=== PATIENT | male | born 2000 | race African-American/Black ===

== ENCOUNTER 2020-07-18 13:12 | Emergency (ER) | payer MEDICAID ==
--- NOTE | 2020-07-18 13:21 | EDM.PDOC ---
ED HPI GENERAL MEDICAL PROBLEM - General Stated Complaint: TROUBLE BREATHING,ABDOMINAL PAIN Time Seen by Provider: 07/18/20 13:20 Source of Information: Reports: Patient History Limitations: Reports: No Limitations - History of Present Illness INITIAL COMMENTS - FREE TEXT/NARRATIVE: HISTORY AND PHYSICAL: History of present illness: Patient is a 20-year-old male who presents to the emergency room with complaints of generalized upper abdominal pain, nausea, vomiting and constipation. He states he has not had a bowel movement in 3 to 4 days. Has not used any [id number] remedies to help facilitate a bowel movement. Yesterday he developed some midsternal/generalized chest pain which resolved with ibuprofen. Patient denies any fever, chills, headache, change in vision, syncope or near syncope. Denies any back pain, shortness of breath, cough or hemoptysis. Denies any diarrhea, testicular pain/redness/swelling or dysuria. Has not noted any blood in urine or stool. Patient has been eating and drinking appropriately. Review of systems: As per history of present illness and below otherwise all systems reviewed and negative. Past medical history: As per history of present illness and as reviewed below otherwise noncontributory. Surgical history: As per history of present illness and as reviewed below otherwise noncontributory. Social history: See social history for further information Family history: As per history of present illness and as reviewed below otherwise noncontributory. Physical exam: General: Well developed and well nourished 20 year old male. Alert and or ientated x 3. Nontoxic in appearance and in no acute distress. Vital signs are stable and have been reviewed by me. Nursing notes were reviewed. HEENT: Atraumatic, normocephalic, pupils equal and reactive bilaterally, negative for conjunctival pallor or scleral icterus, mucous membranes moist, TMs normal bilaterally, throat clear, neck supple, nontender, trachea midline. No drooling or trismus noted. No meningeal signs. No hot potato voice noted. Lungs: Clear to auscultation, breath sounds equal bilaterally, chest nontender. Normal work of breathing, no accessory muscles used. Heart: S1S2, regular rate and rhythm without overt murmur Abdomen: Soft, nondistended, diffuse generalized tenderness in all 4 quadrants. No rebound tenderness. Negative Worley sign. negative for masses or hepato splenomegaly. Negative for costovertebral tenderness. Skin: Intact, warm, dry. No lesions or rashes noted. Hematologic: No petechiae or purpra. Mucosa appropriate color and normal nail bed color and refill. Extremities: Atraumatic, moves all extremities per self without difficulty or deficits, negative for cords or calf pain. Neurovascular unremarkable. Neuro: Awake, alert, oriented. Cranial nerves II through XII unremarkable. Cerebellum unremarkable. Motor and sensory unremarkable throughout. Exam nonfocal. Psychiatric: Mood and affect are appropriate. Normal thought process. Answering questions appropriately. Notes: EKG shows a sinus rhythm with a rate of 74. No concern for STEMI. Patient does have a leukocytosis of 14.7, CT of the abdomen and pelvis was ordered. No findings of appendicitis. No evidence of diverticulitis or bowel obstruction. Mild duodenal wall prominence could be related to underdistention, without periduodenal changes. Correlate clinically to exclude mild duodenitis. Fullness of the right renal upper pole collecting system without hydroureter. Borderline bladder wall thickness could be related to underdistention. I have talked with the patient about today's findings, in addition to providing specific details for plan of care. He is tolerating PO without n/v. States he does feel improved. Will place patient on Cipro BID x 5 days. Reassessment at the time of disposition demonstrates that the patient is in no acute distress. The patient is stable for discharge, counseling was provided and we discussed in great detail signs and symptoms that would prompt them to return to the Emergency Department. Medication, follow up and supportive care measures were reviewed and discussed. Voices understanding and is agreeable to plan of care. Denies any further questions or concerns at this time. Diagnostics: CBC, CMP, UA, lipase, EKG, chest x-ray Therapeutics: IV fluid, Zofran Prescription: Cipro Impression: Mild duodenitis Plan: 1. Today your lab work and CT scan shows mild inflammation of the duodenum (small intestine). Please increase your fluids. Lipscomb diet and advance as tolerated. If you continue to feel like you are constipated, may add Miralax to your regiment until satisfactory bowel movement. 2. Take the antibiotic as directed. Tylenol and Ibuprofen as needed for pain. 3. We encourage you to follow up with your primary care provider and/or recommended specialist in the next few days for re-evaluation and further care/management. If your symptoms should worsen, new symptoms develop or any of the signs and symptoms we discussed should arise please return to the emergency room or call 911 (if needed). Definitive disposition and diagnosis as appropriate pending reevaluation and review of above. Abdominal Pain Pain Score (Numeric/FACES): 8 - Related Data Allergies Allergy/AdvReac Type Severity Reaction Status Date / Time No Known Allergies Allergy Verified 07/18/20 13:24 Home Meds: Home Meds Adhd Medication 07/18/20 [History] Ciprofloxacin HCl [Cipro] 500 mg PO BID 5 Days #10 tablet 07/18/20 [Rx] ED ROS GENERAL - Review of Systems Review Of Systems: Comprehensive ROS is negative, except as noted in HPI. ED EXAM, GI/ABD - Physical Exam Exam: See Below (See dictation) Course - Vital Signs Last Recorded V/S: Last Vital Signs Temp 97.0 F 07/18/20 13:24 Pulse 71 07/18/20 15:38 Resp 16 07/18/20 15:38 BP 101/47 L 07/18/20 15:38 Pulse Ox 97 07/18/20 15:38 - Orders/Labs/Meds Orders: Active Orders 24 hr Category Date Time Status EKG Documentation Completion [RC] STAT Care 07/18/20 13:30 Active Labs: Laboratory Tests 07/18/20 07/18/20 07/18/20 Range/Units 13:38 13:38 14:29 WBC 14.71 H (4.0-11.0) K/uL RBC 4.56 (4.50-5.90) M/uL Hgb 13.8 (13.0-17.0) g/dL Hct 40.3 (38.0-50.0) % MCV 88.4 (80.0-98.0) fL MCH 30.3 (27.0-32.0) pg MCHC 34.2 (31.0-37.0) g/dL RDW Std Deviation 38.9 (28.0-62.0) fl RDW Coeff of Prasanth 12 (11.0-15.0) % Plt Count 194 (150-400) K/uL MPV 10.40 (7.40-12.00) fL Neut % (Auto) 79.1 (48.0-80.0) % Lymph % (Auto) 12.8 L (16.0-40.0) % [place] % (Auto) 7.7 (0.0-15.0) % Eos % (Auto) 0.3 (0.0-7.0) % Baso % (Auto) 0.1 (0.0-1.5) % Neut # (Auto) 11.6 H (1.4-5.7) K/uL Lymph # (Auto) 1.9 (0.6-2.4) K/uL [place] # (Auto) 1.1 H (0.0-0.8) K/uL Eos # (Auto) 0.1 (0.0-0.7) K/uL Baso # (Auto) 0.0 (0.0-0.1) K/uL Nucleated RBC % 0.0 /100WBC Nucleated RBCs # 0 K/uL Sodium 137 (136-148) mmol/L Potassium 4.0 (3.5-5.1) mmol/L Chloride 98 (98-107) mmol/L Carbon Dioxide 22.9 (21.0-32.0) mmol/L BUN 27 H (7.0-18.0) mg/dL Creatinine 1.5 H (0.8-1.3) mg/dL Est Cr Clr Drug Dosing 95.76 mL/min Estimated GFR (MDRD) > 60.0 ml/min Glucose 71 L (74-106) mg/dL Calcium 9.8 (8.5-10.1) mg/dL Total Bilirubin 1.3 H (0.2-1.0) mg/dL AST 185 H (15-37) IU/L ALT 26 (14-63) IU/L Alkaline Phosphatase 49 (46-116) U/L Total Protein 8.6 H (6.4-8.2) g/dL Albumin 4.9 (3.4-5.0) g/dL Globulin 3.7 (2.6-4.0) g/dL Albumin/Globulin Ratio 1.3 (0.9-1.6) Lipase 55 L (73-393) U/L Urine Color YELLOW Urine Appearance HAZY Urine pH 6.0 (5.0-8.0) Ur Specific [place] >= 1.030 (1.001-1.035) Urine Protein TRACE H (NEGATIVE) mg/dL Urine Glucose (UA) NEGATIVE (NEGATIVE) mg/dL Urine Ketones >=80 (NEGATIVE) mg/dL Urine Occult Blood TRACE-INTACT H (NEGATIVE) Urine Nitrite NEGATIVE (NEGATIVE) Urine Bilirubin SMALL H (NEGATIVE) Urine Ictotest NEGATIVE Urine Urobilinogen 0.2 (<2.0) EU/dL Ur Leukocyte Esterase NEGATIVE (NEGATIVE) Urine RBC 0-1 (0-2/HPF) Urine WBC 0-1 (0-5/HPF) Ur Epithelial Cells RARE (NONE-FEW) Amorphous Sediment FEW (NEGATIVE) Urine Bacteria FEW (NEGATIVE) Fine Granular Casts OCCASIONAL (NEGATIVE) Meds: Medications Discontinued Medications Generic Name Dose Route Start Last Admin Trade Name Freq PRN Reason Stop Dose Admin Sodium Chloride 1,000 mls @ 999 mls/hr 07/18/20 13:29 07/18/20 13:38 Normal Saline IV 07/18/20 14:29 999 mls/hr STAT ONE Administration Iopamidol 100 ml 07/18/20 15:23 07/18/20 15:24 Isovue Multipack-370 (76%) IVPUSH 07/18/20 15:24 100 ml ONETIME STA Administration Ondansetron HCl 4 mg 07/18/20 13:29 07/18/20 13:38 Zofran IVPUSH 07/18/20 13:30 4 mg ONETIME ONE Administration Departure - Departure Time of Disposition: 15:55 Disposition: Home, Self-Care 01 Clinical Impression: Duodenitis - Discharge Information Prescriptions: Ciprofloxacin HCl [Cipro] 500 mg PO BID 5 Days #10 tablet Instructions: Duodenitis Referrals: PCP,None [Primary Care Provider] - Forms: ED Department Discharge Additional Instructions: The following information is given to patients seen in the emergency department who are being discharged to home. This information is to outline your options for follow-up care. We provide all patients seen in our emergency department with a follow-up referral. The need for follow-up, as well as the timing and circumstances, are variable depending upon the specifics of your emergency department visit. If you don't have a primary care physician on staff, we will provide you with a referral. We always advise you to contact your personal physician following an emergency department visit to inform them of the circumstance of the visit and for follow-up with them and/or the need for any referrals to a consulting specialist. The emergency department will also refer you to a specialist when appropriate. This referral assures that you have the opportunity for follow-up care with a specialist. All of these measure are taken in an effort to provide you with optimal care, which includes your follow-up. Under all circumstances we always encourage you to contact your private physician who remains a resource for coordinating your care. When calling for follow-up care, please make the office aware that this follow-up is from your recent emergency room visit. If for any reason you are refused follow-up, please contact the [facility] Emergency Department at and asked to speak to the emergency department charge nurse. [facility] [address] [place] [id number] [place] [address] Thank you for choosing the [facility] emergency department in [place] for your medical needs today. It was a pleasure caring for you. Today you were seen in the emergency department for abdominal pain. 1. Today your lab work and CT scan shows mild inflammation of the duodenum (small intestine). Please increase your fluids. Lipscomb diet and advance as tolerated. If you continue to feel like you are constipated, may add Miralax to your regiment until satisfactory bowel movement. 2. Take the antibiotic as directed. Tylenol and Ibuprofen as needed for pain. 3. We encourage you to follow up with your primary care provider and/or recommended specialist in the next few days for re-evaluation and further care/management. If your symptoms should worsen, new symptoms develop or any of the signs and symptoms we discussed should arise please return to the emergency room or call 911 (if needed). Sepsis Event Note (ED) - Focused Exam Vital Signs: Vital Signs Temp Pulse Resp BP Pulse Ox 07/18/20 15:38 71 16 101/47 L 97 07/18/20 14:46 104/63 07/18/20 13:24 97.0 F 109 H 17 118/64 98 - My Orders Last 24 Hours: My Active Orders 07/18/20 13:30 EKG Documentation Completion [RC] STAT - Assessment/Plan Last 24 Hours: My Active Orders 07/18/20 13:30 EKG Documentation Completion [RC] STAT
[2020-07-18] MEDS ORDERED: Sodium Chloride 0.9% 1,000 ML IV ONE (13:29)
[2020-07-18] MEDS ORDERED: Ondansetron 4 MG/2 ML SDV IVPUSH ONE (13:29)
--- NOTE | 2020-07-18 13:49 | PCM.SN.2 ---
- Free Text/Narrative Note: EKG Time 137pm Rate 74 NSR no JULITA
[2020-07-18 14:26] LABS: BLOOD UREA NITROGEN,BUN 27 mg/dL (7.0-18.0); CARBON DIOXIDE,CO2 22.9 mmol/L (21.0-32.0); CHLORIDE,CL 98 mmol/L (98-107); GLUCOSE RANDOM 71 mg/dL (74-106); LIPASE 55 U/L (73-393); SODIUM,NA 137 mmol/L (136-148)
--- NOTE | 2020-07-18 14:26 | CR ---
HISTORY: Chest pain. TECHNIQUE: Portable frontal view the chest. COMPARISON: None. FINDINGS: No airspace consolidation. No pleural effusion or pneumothorax. Pulmonary vasculature and cardiomediastinal silhouette are within normal limits. IMPRESSION: No cardiopulmonary abnormality. Dictated by Tejas Cortez MD @ Jul 18 2020 2:23PM Signed by Dr. Tejas Cortez @ Jul 18 2020 2:24PM
[2020-07-18] MEDS ORDERED: Iopamidol 755 MG/ML 500 ML Multipack Bottle IVPUSH STA (15:23)
--- NOTE | 2020-07-18 15:51 | CT ---
INDICATION: Abdominal pain TECHNIQUE: CT abdomen and pelvis acquired with IV contrast. 100 mL of Isovue 370 administered. COMPARISON: None available FINDINGS: Lower chest: Unremarkable. Liver: Unremarkable. Spleen: Unremarkable. Pancreas: Unremarkable. Gallbladder and bile ducts: Unremarkable. Adrenal glands: Unremarkable. 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 GI tract: Mild duodenal wall prominence could be related to underdistention, without periduodenal changes. No mechanical bowel obstruction. Portions of a normal caliber appendix seen without pericecal inflammatory changes. No significant pericolonic changes. Vascular structures: Unremarkable. Lymph nodes: Unremarkable. Miscellaneous: No free air or significant free fluid. Pelvic Organs: Borderline bladder wall thickness could be related to incomplete distention. A small enhancing focus in the midline superior prostate on image 140 which could be physiologic. Bones: Unremarkable for age. IMPRESSION: No findings of appendicitis. No evidence of diverticulitis or bowel obstruction. Mild duodenal wall prominence could be related to underdistention, without periduodenal changes. Correlate clinically to exclude mild duodenitis. Fullness of the right renal upper pole collecting system without hydroureter. Borderline bladder wall thickness could be related to underdistention. Correlate with urinalysis. Please note that all CT scans at this facility use dose modulation, iterative reconstruction, and/or weight-based dosing when appropriate to reduce radiation dose to as low as reasonably achievable. Dictated by Barron Fishman MD @ Jul 18 2020 3:36PM Signed by Dr. Barron Fishman @ Jul 18 2020 3:49PM
== END 2020-07-18 16:09 | disposition home or self-care (01) ==
LOC: MW.ED 13:12
DX: K29.80 Duodenitis without bleeding (principal)
CPT/HCPCS: 71045; 74177; 80053; 81001; 83690; 85025; 93005; 96374; 99284; J2405; J7030; Q9967; 93010; 99283

== ENCOUNTER 2020-08-14 15:41 | Emergency (ER) | payer MEDICAID ==
[2020-08-14] MEDS ORDERED: Ketorolac 60 MG/2 ML SDV IM ONE (16:50)
--- NOTE | 2020-08-14 16:56 | EDM.PDOC ---
ED HPI GENERAL MEDICAL PROBLEM - General Chief Complaint: Lower Extremity Injury/Pain Stated Complaint: RIGHT KNEE PAIN Time Seen by Provider: 08/14/20 16:30 Source of Information: Reports: Patient History Limitations: Reports: No Limitations - History of Present Illness INITIAL COMMENTS - FREE TEXT/NARRATIVE: Reporting right knee pain the patient states that he was playing basketball last night and after the game he noticed some pain in his right knee. It has persisted since that time. He recalls falling down 3 times during the game and striking the knee. He also fell down 3 times in the game on the previous evening, indirectly striking the knee. He has not really noticed any swelling. He has been ambulating. The pain increases by flexing and with ambulating. He is otherwise healthy without chronic medical problems and takes no medications. Right Knee Pain Score (Numeric/FACES): 9 - Related Data Allergies Allergy/AdvReac Type Severity Reaction Status Date / Time No Known Allergies Allergy Verified 08/14/20 16:03 Home Meds: Home Meds Amphetamine/Dextroamphetamine [Adderall] 20 mg PO DAILY 08/14/20 [History] Past Medical History - Past Health History Medical/Surgical History: Denies Medical/Surgical History Psychiatric History: Reports: ADHD - Infectious Disease History Infectious Disease History: Reports: None Social & Family History - Family History Family Medical History: No Pertinent Family History - Tobacco Use Tobacco Use Status *Q: Never Tobacco User - Caffeine Use Caffeine Use: Reports: Coffee, Energy Drinks - Recreational Drug Use Recreational Drug Use: Yes Recreational Drug Type: Reports: Marijuana/Hashish Recreational Drug Use Frequency: Monthly Review of Systems - Review of Systems Review Of Systems: Comprehensive ROS is negative, except as noted in HPI. ED EXAM, GENERAL - Physical Exam Exam: See Below Exam Limited By: No Limitations General Appearance: Alert, No Apparent Distress Ears: Normal External Exam Nose: Normal Inspection Throat/Mouth: Normal Inspection Head: Atraumatic, Normocephalic Neck: Normal Inspection Respiratory/Chest: No Respiratory Distress Cardiovascular: Normal Peripheral Pulses GI/Abdominal: Normal Bowel Sounds Extremities: Other (Mild swelling inferior to the patella, no ecchymosis, erythema, deformity, crepitus. Anterior posterior drawer and varus valgus stress test negative. Mild medial pain to Apley's grind test) Neurological: Alert, Oriented Psychiatric: Normal Affect, Normal Mood Skin Exam: Warm, Dry, Intact, Normal Color, No Rash Lymphatic: No Adenopathy Course - Vital Signs Last Recorded V/S: Last Vital Signs Temp 36.9 C 08/14/20 16:04 Pulse 60 08/14/20 16:04 Resp 18 08/14/20 16:04 BP 107/72 08/14/20 16:04 Pulse Ox 97 08/14/20 16:04 - Orders/Labs/Meds Meds: Medications Discontinued Medications Generic Name Dose Route Start Last Admin Trade Name Leif PRN Reason Stop Dose Admin Ketorolac Tromethamine 60 mg 08/14/20 16:50 08/14/20 16:56 Toradol IM 08/14/20 16:51 60 mg ONETIME ONE Administration Departure - Departure Time of Disposition: 17:55 Disposition: Home, Self-Care 01 Condition: Good Clinical Impression: Knee pain Qualifiers: Chronicity: acute Laterality: right Qualified Code(s): M25.561 - Pain in right knee - Discharge Information Referrals: PCP,Not In Area [Primary Care Provider] - Forms: ED Department Discharge Additional Instructions: The following information is given to patients seen in the emergency department who are being discharged to home. This information is to outline your options for follow-up care. We provide all patients seen in our emergency department with a follow-up referral. The need for follow-up, as well as the timing and circumstances, are variable depending upon the specifics of your emergency department visit. If you don't have a primary care physician on staff, we will provide you with a referral. We always advise you to contact your personal physician following an emergency department visit to inform them of the circumstance of the visit and for follow-up with them and/or the need for any referrals to a consulting specialist. The emergency department will also refer you to a specialist when appropriate. This referral assures that you have the opportunity for follow-up care with a specialist. All of these measure are taken in an effort to provide you with opt imal care, which includes your follow-up. Under all circumstances we always encourage you to contact your private physician who remains a resource for coordinating your care. When calling for follow-up care, please make the office aware that this follow-up is from your recent emergency room visit. If for any reason you are refused follow-up, please contact the [facility] Emergency Department at and asked to speak to the emergency department charge nurse. 1. Follow-up with vocational trainer 2. Follow-up with orthopedics: [facility] [address], [address] [place] [address] 3. Knee sleeve 4. Cool pack to prevent further swelling 20 minutes every 3-4 hours as needed Sepsis Event Note (ED) - Evaluation Sepsis Screening Result: No Definite Risk - Focused Exam Vital Signs: Vital Signs Temp Pulse Resp BP Pulse Ox 08/14/20 16:04 36.9 C 60 18 107/72 97
--- NOTE | 2020-08-14 17:45 | CR ---
Indication: Landed on knee several times playing basketball Technique: Three views right knee Comparison: None Findings: Bones: Alignment is normal. No fractures or bone lesions. Joint spaces: Unremarkable. Soft tissues: Unremarkable. Impression: Negative. Dictated by Andria Gee MD @ Aug 14 2020 5:42PM Signed by Dr. Andria Gee @ Aug 14 2020 5:44PM
== END 2020-08-14 18:06 | disposition home or self-care (01) ==
LOC: MW.ED 15:41
DX: M25.561 Pain in right knee (principal); Z79.899 Other long term (current) drug therapy
CPT/HCPCS: 73562; 96372; 99283; J1885